=== PATIENT | female | born 1970 | race Caucasian/White ===

== ENCOUNTER 2019-10-08 04:06 | Emergency (ER) | payer OTHER ==
[2019-10-08] MEDS ORDERED: Acetaminophen 325 MG TAB ONE (05:05)
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
== END 2019-10-08 05:51 | disposition home or self-care (01) ==
LOC: NAV ERS 04:06
DX: S00.03XA Contusion of scalp, initial encounter (principal); M54.2 Cervicalgia; G89.29 Other chronic pain; D64.9 Anemia, unspecified; Y04.0XXA Assault by unarmed brawl or fight, initial encounter
CPT/HCPCS: 70450; 70486; 72125